=== PATIENT | female | born 1955 | race African-American/Black ===

== ENCOUNTER 2022-09-06 19:02 | Emergency (ER) | payer OTHER ==
[~2022-09-06] VITALS: Ht 160 cm; Wt 83.2 kg
[2022-09-06 19:27] VITALS: BP 170/96
[2022-09-06] MEDS ORDERED: IBUPROFEN 800 MG TAB PO ONE (19:45)
[2022-09-06 23:17] LABS: Basophils # (auto) 0.1 10 ^3/uL (0-0.2); Basophils % (auto) 0.7 % (0.0-2.0); Eosinophils # (auto) 0 10 ^3/uL (0-0.8); Eosinophils % (auto) 0.1 % (0.0-7.0); Hematocrit 43.5 % (36.0-46.0); Hemoglobin 14.3 g/dL (12.2-16.2); Lymphocytes # (auto) 2.9 10 ^3/uL (0.4-5.4); Lymphocytes % (auto) 23.6 % (10.0-50.0); Mean Corpuscular Hgb Conc. 32.8 g/dL (32.0-36.0); Mean Corpuscular Volume 88.3 fL (80.0-100.0); Monocytes # (auto) 1.1 10 ^3/uL (0-1.3); Monocytes % (auto) 9.4 % (0.0-12.0); Neutrophils % (auto) 66.2 % (37.0-80.0); Nucleated Red Blood Cells % 0.2 %; Red Blood Cells 4.93 10^6/uL (4.0-5.20); Red Cell Distribution Width 13.5 % (11.8-14.3); White Blood Cell 12.1 10^3/uL (4.4-10.8)
[2022-09-06 23:31] LABS: Albumin 3.7 g/dL (3.4-5.0); Anion Gap 8 (5-15); Blood Alcohol < 3.0 mg/dL (0-5); Blood Urea Nitrogen 8 mg/dL (7-18); Calcium 9.6 mg/dL (8.5-10.1); Carbon Dioxide 24 mmol/L (21-32); Chloride 104 mmol/L (98-107); Glucose 110 mg/dL (74-106); Lipase 65 U/L (73-393); Potassium 3.8 mmol/L (3.5-5.1); Sodium 136 mmol/L (136-145)
[2022-09-06 23:33] LABS: INR 0.96 (0.9-1.15)
[2022-09-06 23:39] LABS: Alanine Aminotransferase 24 U/L (13-56); Alkaline Phosphatase 85 U/L (45-117); Aspartate Aminotransferase 16 U/L (15-37); BUN/Creatinine Ratio 8.2 (10.0-20.0); Bilirubin, Total 0.9 mg/dL (0.2-1.0); CRP High Sensitivity 7.66 mg/dL (< 0.3); GFR African American 73 mL/min; GFR Non-African American 61 mL/min; Total Protein 8.1 g/dL (6.4-8.2)
== END 2022-09-07 04:33 | disposition left against medical advice (07) ==
LOC: ER 19:02
DX: R51.9 Headache, unspecified (principal); R22.0 Localized swelling, mass and lump, head; Z53.21 Procedure and treatment not carried out due to patient leaving prior to being seen by health care provider; Z20.822 Contact with and (suspected) exposure to COVID-19
CPT/HCPCS: 36415; 70450; 70486; 80053; 80320; 83605; 83690; 85025; 85610; 85652; 85730; 86141; 87426; 87804